=== PATIENT | male | born 1960 | race Caucasian/White ===

== ENCOUNTER 2020-02-25 03:37 | Emergency (ER) | payer BC ==
[~2020-02-25] VITALS: Ht 188 cm; Wt 113.4 kg
[2020-02-25] MEDS ORDERED: KETOROLAC TROMETHAMINE 30 MG/ML VIAL IV STA (03:55)
--- NOTE | 2020-02-25 03:55 | Emergency Department Note ---
History of Present Illnes History of Present Illness Chief Complaint: COVID PUI History of Present Illness This is a 59 year old male with increasing dyspnea and cough for past several days. Patient with recent (+) COVID-19 test . Historian: Patient Arrival Mode: Car Onset (how long ago): week(s) (1) Severity: moderate Duration (how long): day(s) Timing of current episode: constant Progression: worsening Chronicity: new Context: Reports recent illness Relieving factors: none Exacerbating factors: none Associated symptoms: Reports fever/chills, Reports malaise Past Medical/Family History Physician Review I have reviewed the patient's past medical and family history. Any updates have been documented here. Past Medical History Recent Fever: Yes Clinical Suspicion of Infectio: Yes New/Unexplained Change in Ment: No Other Medical History: DVT Past Surgical History: None Social History Smoking Cessation: Never Smoker Alcohol Use: None Any Illegal Drug Use: No Review of Systems Review of Systems Constitutional: Reports fever EENTM: Reports no symptoms Cardiovascular: Reports no symptoms Respiratory: Reports dyspnea Gastrointestinal: Reports no symptoms Genitourinary: Reports no symptoms Musculoskeletal: Reports no symptoms Integumentary: Reports no symptoms Neurological: Reports no symptoms Psychological: Reports no symptoms Endocrine: Reports no symptoms Hematological/Lymphatic: Reports no symptoms Physical Exam Related Data Allergies: Coded Allergies: No Known Allergies (Unverified , 02/25/20) Triage Vital Signs Vital Signs Date Time Temp Pulse Resp B/P (MAP) Pulse Ox O2 Delivery O2 Flow Rate FiO2 02/25/20 03:51 101.3 78 22 119/80 93 Room Air Vital signs reviewed: Yes Physical Exam CONSTITUTIONAL Constitutional: Present well-developed, Present well-nourished HENT HENT: Present normocephalic, Present atraumatic, Present oropharynx cl ear/moist, Present nose normal HENT L/R: Present left ext ear normal, Present right ext ear normal EYES Eyes: Reports PERRL, Reports conjunctivae normal NECK Neck: Present ROM normal PULMONARY Pulmonary: Present effort normal, Present breath sounds normal CARDIOVASCULAR Cardiovascular: Present regular rhythm, Present heart sounds normal, Present capillary refill normal, Present normal rate GASTROINTESTINAL Abdominal: Present soft, Present nontender, Present bowel sounds normal GENITOURINARY Genitourinary: Present exam deferred SKIN Skin: Present warm, Present dry MUSCULOSKELETAL Musculoskeletal: Present ROM normal NEUROLOGICAL Neurological: Present alert, Present oriented x 3, Present no gross motor or sensory deficits PSYCHOLOGICAL Psychological: Present mood/affect normal, Present judgement normal Results Laboratory Lab results reviewed: Yes Laboratory comments Laboratory Tests Test 02/25/20 03:55 White Blood Count 6.35 x10e3/uL (4.8-10.8) Red Blood Count 5.02 x10e6/uL (4.3-5.7) Hemoglobin 14.5 g/dL (14.0-18.0) Hematocrit 44.6 % (38.2-49.6) Mean Corpuscular Volume 88.8 fL (81-99) Mean Corpuscular Hemoglobin 28.9 pg (28-32) Mean Corpuscular Hemoglobin Concent 32.5 g/dL (31-35) Red Cell Distribution Width 13.3 % (11.7-14.4) Platelet Count 145 x10e3/uL (140-360) Neutrophils (%) (Auto) 80.8 % (38.7-80.0) Lymphocytes (%) (Auto) 14.2 % (18.0-39.1) Monocytes (%) (Auto) 3.8 % (4.4-11.3) Eosinophils (%) (Auto) 0.6 % (0.0-6.0) Basophils (%) (Auto) 0.3 % (0.0-1.0) Neutrophils # (Auto) 5.1 (2.1-6.9) Lymphocytes # (Auto) 0.9 (1.0-3.2) Monocytes # (Auto) 0.2 (0.2-0.8) Eosinophils # (Auto) 0.0 (0.0-0.4) Basophils # (Auto) 0.0 (0.0-0.1) Absolute Immature Granulocyte (auto 0.02 x10e3/uL (0-0.1) Sodium Level 133 mmol/L (136-145) Potassium Level 4.2 mmol/L (3.5-5.1) Chloride Level 99 mmol/L (98-107) Carbon Dioxide Level 25 mmol/L (22-29) Anion Gap 13.2 mmol/L (8-16) Blood Urea Nitrogen 12 mg/dL (7-26) Creatinine 0.98 mg/dL (0.72-1.25) Estimat Glomerular Filtration Rate > 60 ML/MIN (60-) BUN/Creatinine Ratio 12 (6-25) Glucose Level 106 mg/dL (74-118) Calcium Level 8.8 mg/dL (8.4-10.2) Total Bilirubin 0.4 mg/dL (0.2-1.2) Aspartate Amino Transf (AST/SGOT) 43 IU/L (5-34) Alanine Aminotransferase (ALT/SGPT) 43 IU/L (0-55) Alkaline Phosphatase 57 IU/L (40-150) Total Protein 7.9 g/dL (6.5-8.1) Albumin 4.0 g/dL (3.5-5.0) Globulin 3.9 g/dL (2.3-3.5) Albumin/Globulin Ratio 1.0 (0.8-2.0) Imaging Imaging results reviewed: Yes Impressions [place] [id number] Patient Name: BIB REYES MR #: [id number] : 1960 Age/Sex: 59/M Req #: [id number] Adm Physician: Ordered by: JUSTIN FISHER DO Report #: [id number] Location: ER Room/Bed: Procedure: [id number] CT/CT CHEST W Exam Date: Exam Time: REPORT STATUS: Signed EXAM: CT Chest WITH contrast 02/25/2020 5:23 AM INDICATION: Shortness of breath COMPARISON: None TECHNIQUE: Chest was scanned utilizing a multidetector helical scanner from the lung apex through the level of the adrenal glands without administration of IV contrast. Coronal and sagittal reformations were obtained. Routine protocol was performed. IV CONTRAST: 100 mL of Omnipaque 300 COMPLICATIONS: None RADIATION DOSE: Total DLP: 541 mGy*cm Estimated effective dose: (DLP x 0.014 x size factor) mSv CTDIvol has been reviewed. It is below the limits set by the Radiation Protocol Committee (RPC). Dose modulation, iterative reconstruction, and/or weight based adjustment of the mA/kV was utilized to reduce the radiation dose to as low as reasonably achievable. FINDINGS: LINES/ TUBES: None. LUNGS AND AIRWAYS: Patchy groundglass airspace consolidations throughout both lungs. More solid consolidation of the left lower lobe. PLEURA: The pleural spaces are clear. HEART AND MEDIASTINUM: No pulmonary artery filling defect is identified to the level of the segmental pulmonary artery branches. Mildly prominent subcentimeter mediastinal and hilar lymph nodes, likely reactive. The heart is at the upper limit of normal in size. No pericardial effusion. UPPER ABDOMEN: Multiple benign hepatic cysts. BONES: The visualized bony thorax is within normal limits. SOFT TISSUES: Unremarkable. IMPRESSION: 1. No pulmonary embolus. 2. Multifocal pulmonary airspace disease consistent with provided history of viral pneumonia. Signed by: Marnie Mei MD on 02/25/2020 5:42 AM Dictated By: MARNIE MEI MD 1 Transcribed By: JB on 02/25/20 05 COPY TO: JUSTIN FISHER DO~ Assessment & Plan Medical Decision Making MDM 59 yom with fever and myalgias. (+) contact with family members with similiar symptoms. COVID-19 positive from outside facility. Diff Dx : PE, PTX, pneumonia, ARDS , COVID-19 infection Assessment & Plan Final Impression: (1) Upper respiratory tract infection due to COVID-19 virus (2) Hypoxia Depart Disposition: HOME, SELF-CARE JUSTIN FISHER DO Feb 25, 2020 03:55
[2020-02-25 04:04] LABS: BASOPHILS % 0.3 % (0.0-1.0); EOSINOPHILS % 0.6 % (0.0-6.0); HEMATOCRIT 44.6 % (38.2-49.6); HEMOGLOBIN 14.5 g/dL (14.0-18.0); LYMPHOCYTES # (AUTO) 0.9 (1.0-3.2); LYMPHOCYTES % 14.2 % (18.0-39.1); MEAN CORPUSCULAR HEMOGLOBIN 28.9 pg (28-32); MEAN CORPUSCULAR HGB CONC 32.5 g/dL (31-35); MEAN CORPUSCULAR VOLUME 88.8 fL (81-99); MONOCYTES # (AUTO) 0.2 (0.2-0.8); MONOCYTES % 3.8 % (4.4-11.3); NEUTROPHILS # (AUTO) 5.1 (2.1-6.9); NEUTROPHILS % 80.8 % (38.7-80.0); PLATELET COUNT 145 x10e3/uL (140-360); RED BLOOD COUNT 5.02 x10e6/uL (4.3-5.7); RED CELL DISTRIBUTION WIDTH 13.3 % (11.7-14.4)
[2020-02-25 04:28] LABS: ALANINE AMINOTRANSFERASE 43 IU/L (0-55); ALKALINE PHOSPHATASE 57 IU/L (40-150); ANION GAP 13.2 mmol/L (8-16); BLOOD UREA NITROGEN 12 mg/dL (7-26); BUN/CREATININE RATIO 12 (6-25); CALCIUM 8.8 mg/dL (8.4-10.2); CARBON DIOXIDE 25 mmol/L (22-29); CHLORIDE 99 mmol/L (98-107); CREATININE, SERUM 0.98 mg/dL (0.72-1.25); EST GLOMERULAR FILTRATION RATE > 60 ML/MIN (60-); GLUCOSE 106 mg/dL (74-118); POTASSIUM 4.2 mmol/L (3.5-5.1); SODIUM 133 mmol/L (136-145)
[2020-02-25] MEDS ORDERED: IOPAMIDOL 370 MG/ML 200 ML INFUS..BTL INJ ONE (05:11)
[2020-02-25] MEDS ORDERED: SODIUM CHLORIDE 0.9% 50ML 50 ML ONE (05:12)
--- NOTE | 2020-02-25 05:46 | Diagnostic Imaging Report ---
EXAM: CT Chest WITH contrast 02/25/2020 5:23 AM INDICATION: Shortness of breath COMPARISON: None TECHNIQUE: Chest was scanned utilizing a multidetector helical scanner from the lung apex through the level of the adrenal glands without administration of IV contrast. Coronal and sagittal reformations were obtained. Routine protocol was performed. IV CONTRAST: 100 mL of Omnipaque 300 COMPLICATIONS: None RADIATION DOSE: Total DLP: 541 mGy*cm Estimated effective dose: (DLP x 0.014 x size factor) mSv CTDIvol has been reviewed. It is below the limits set by the Radiation Protocol Committee (RPC). Dose modulation, iterative reconstruction, and/or weight based adjustment of the mA/kV was utilized to reduce the radiation dose to as low as reasonably achievable. FINDINGS: LINES/ TUBES: None. LUNGS AND AIRWAYS: Patchy groundglass airspace consolidations throughout both lungs. More solid consolidation of the left lower lobe. PLEURA: The pleural spaces are clear. HEART AND MEDIASTINUM: No pulmonary artery filling defect is identified to the level of the segmental pulmonary artery branches. Mildly prominent subcentimeter mediastinal and hilar lymph nodes, likely reactive. The heart is at the upper limit of normal in size. No pericardial effusion. UPPER ABDOMEN: Multiple benign hepatic cysts. BONES: The visualized bony thorax is within normal limits. SOFT TISSUES: Unremarkable. IMPRESSION: 1. No pulmonary embolus. 2. Multifocal pulmonary airspace disease consistent with provided history of viral pneumonia. Signed by: Michael Crandall MD on 02/25/2020 5:42 AM
[2020-02-25 06:18] VITALS: BP 111/64
== END 2020-02-25 06:27 | disposition home or self-care (01) ==
LOC: ER 03:57
DX: U07.1 COVID-19 (principal); J06.9 Acute upper respiratory infection, unspecified; R09.02 Hypoxemia; Z86.718 Personal history of other venous thrombosis and embolism
CPT/HCPCS: 36415; 71260; 80053; 85025; 93005; 99284; J1885; Q9967

== ENCOUNTER 2020-02-29 19:18 | Inpatient (IN) | payer BC ==
[~2020-02-29] VITALS: Ht 188 cm; Wt 115.7 kg
[2020-02-29] MEDS ORDERED: ACETAMINOPHEN 325 MG TAB ONE (20:09)
--- NOTE | 2020-02-29 20:31 | Emergency Department Note ---
History of Present Illnes History of Present Illness Chief Complaint: COVID PUI History of Present Illness This is a 59 year old male REPORTS SOB, COUGH, CONGESTION, FEVER X11 DAYS; PT DC'D FROM THIS FACILITY 4 DAYS AGO, HAS POSITIVE COVID TEST FROM [facility]; ORAL TEMP AT THIS TIME 101.7 F . Historian: Patient Arrival Mode: Car Onset (how long ago): day(s) (11) Location: CHEST Quality: FEVER, COUGH, Radiation: Reports non-radiation Severity: moderate Onset quality: gradual Duration (how long): day(s) (11) Progression: worsening Chronicity: new Context: Reports recent illness (POSITIVE COVID 19 TEST) Relieving factors: none Exacerbating factors: none Associated symptoms: Reports denies other symptoms Treatments prior to arrival: none Past Medical/Family History Physician Review I have reviewed the patient's past medical and family history. Any updates have been documented here. Past Medical History Recent Fever: Yes Clinical Suspicion of Infectio: Yes New/Unexplained Change in Ment: No Other Medical History: blood clots high cholesterol Past Surgical History: None Social History Smoking Cessation: Never Smoker Counseling Performed: No Alcohol Use: Occasional Any Illegal Drug Use: No Other Any Pre-Existing Lines (PICC,: No Review of Systems Review of Systems Constitutional: Reports as per HPI EENTM: Reports no symptoms Cardiovascular: Reports no symptoms Respiratory: Reports as per HPI Gastrointestinal: Reports no symptoms Genitourinary: Reports no symptoms Musculoskeletal: Reports no symptoms Integumentary: Reports no symptoms Neurological: Reports no symptoms Psychological: Reports no symptoms Endocrine: Reports no symptoms Hematological/Lymphatic: Reports no symptoms Physical Exam Related Data Allergies: Coded Allergies: No Known Allergies (Unverified , 02/25/20) Triage Vital Signs Vital Signs Date Time Temp Pulse Resp B/P (MAP) Pulse Ox O2 Delivery O2 Flow Rate FiO2 02/29/20 20:03 101.7 86 19 127/77 93 Room Air Vital signs reviewed: Yes Physical Exam CONSTITUTIONAL Constitutional: Present well-developed, Present well-nourished HENT HENT: Present normocephalic, Present atraumatic, Present oropharynx clear/moist, Present nose normal HENT L/R: Present left ext ear normal, Present right ext ear normal EYES Eyes: Reports PERRL, Reports conjunctivae normal NECK Neck: Present ROM normal PULMONARY Pulmonary: Present effort normal, Present rhonchi (MILD AT BASES BILATERAL) CARDIOVASCULAR Cardiovascular: Present regular rhythm, Present heart sounds normal, Present capillary refill normal, Present normal rate GASTROINTESTINAL Abdominal: Present soft, Present nontender, Present bowel sounds normal GENITOURINARY Genitourinary: Present exam deferred SKIN Skin: Present warm, Present dry MUSCULOSKELETAL Musculoskeletal: Present ROM normal NEUROLOGICAL Neurological: Present alert, Present oriented x 3, Present no gross motor or sensory deficits PSYCHOLOGICAL Psychological: Present mood/affect normal, Present judgement normal Procedures 12 Lead ECG Interpretation ECG Interpretation : ECG: ECG 1 Director Phone: Interpreted by ED physician Date: Feb 29, 2020 Time: 20:05 Rhythm: sinus rhythm Rate: normal BPM: 76 QRS axis: normal ST segments normal: Yes T waves normal: Yes Other findings: LVH Clinical Impression: non-specific ECG Pulse Oximetry Pulse ox probe location: digit - finger Initial readin Readin (on 4 l oxygen via nc) Actions taking: other (placed on 4l oxygen via nc oxygen sat increased to 97%) Assessment & Plan Medical Decision Making MDM PT WITH KNOWN POSITIVE COVID 19 TEST PRESENTS WITH C/O GETTING WORSE, PT STATES STILL RUNNING FEVER, HAS COUGH AND SOB CBC, CMP, EKG, CARDIAC ENZYMES, CXR, ORDERED TO EVAL FOR MYOCARDIAL INFARCTION, ELECTROLYTE ABNORMALITY, PNEUMONIA TYLENOL 975 MG PO ORDERED I SPOKE WITH DR RIVERA , DR BENJAMIN, AND DR OLIVEIRA, ADMIT TO INPATIENT Reassessment Reassessment time: 22:28 Reassessment Date Time Temp Pulse Resp B/P (MAP) Pulse Ox O2 Delivery O2 Flow Rate FiO2 02/29/20 22:24 101.1 79 24 140/74 88 02/29/20 20:03 Room Air Assessment & Plan Final Impression: (1) COVID-19 (2) Viral pneumonia (3) Hypoxia Depart Disposition: ADMITTED Last Vital Signs Date Time Temp Pulse Resp B/P (MAP) Pulse Ox O2 Delivery O2 Flow Rate FiO2 02/29/20 20:03 101.7 86 19 127/77 93 Room Air Medications in the ED Acetaminophen 975 mg STK-MED ONCE .ROUTE ; Start 02/29/20 at 20:09; Stop 02/29/20 at 20:04; Status DC LAURA KELLY MD Feb 29, 2020 20:31
[2020-02-29 21:03] LABS: BASOPHILS % 0.1 % (0.0-1.0); EOSINOPHILS % 0.1 % (0.0-6.0); HEMATOCRIT 41.4 % (38.2-49.6); HEMOGLOBIN 13.3 g/dL (14.0-18.0); LYMPHOCYTES # (AUTO) 0.8 (1.0-3.2); LYMPHOCYTES % 8.4 % (18.0-39.1); MEAN CORPUSCULAR HEMOGLOBIN 28.9 pg (28-32); MEAN CORPUSCULAR HGB CONC 32.1 g/dL (31-35); MONOCYTES # (AUTO) 0.1 (0.2-0.8); MONOCYTES % 1.4 % (4.4-11.3); NEUTROPHILS # (AUTO) 8.9 (2.1-6.9); NEUTROPHILS % 89.1 % (38.7-80.0); PLATELET COUNT 263 x10e3/uL (140-360); RED CELL DISTRIBUTION WIDTH 13.6 % (11.7-14.4)
[2020-02-29 21:22] LABS: ALANINE AMINOTRANSFERASE 82 IU/L (0-55); ALBUMIN 3.2 g/dL (3.5-5.0); ALBUMIN/GLOBULIN RATIO 0.8 (0.8-2.0); ALKALINE PHOSPHATASE 47 IU/L (40-150); ANION GAP 15.5 mmol/L (8-16); BLOOD UREA NITROGEN 11 mg/dL (7-26); BUN/CREATININE RATIO 13 (6-25); CALCIUM 8.6 mg/dL (8.4-10.2); CARBON DIOXIDE 29 mmol/L (22-29); CHLORIDE 102 mmol/L (98-107); CREATINE KINASE 312 IU/L (30-200); CREATININE, SERUM 0.88 mg/dL (0.72-1.25); EST GLOMERULAR FILTRATION RATE > 60 ML/MIN (60-); GLUCOSE 95 mg/dL (74-118); POTASSIUM 3.5 mmol/L (3.5-5.1); SODIUM 143 mmol/L (136-145)
--- NOTE | 2020-02-29 21:31 | Diagnostic Imaging Report ---
EXAMINATION: CHEST SINGLE (PORTABLE) INDICATION: Short of breath, fever, positive: COMPARISON: Chest CT 02/25/2020 FINDINGS: TUBES and LINES: None. LUNGS: Normal lung volumes. Scattered patchy airspace opacities. No consolidations. PLEURA: No pleural effusion or pneumothorax. HEART AND MEDIASTINUM: Cardiac size is mildly enlarged. BONES AND SOFT TISSUES: No acute osseous lesion. Soft tissues are unremarkable. UPPER ABDOMEN: No free air under the diaphragm. IMPRESSION: Multifocal pneumonia, compatible with viral pneumonia. Mild cardiomegaly. Signed by: Ryland Mccarthy DO on 02/29/2020 9:27 PM
[2020-02-29] MEDS ORDERED: CEFTRIAXONE SOD 1 GM/NS 50 ML 50 ML IV ONE (22:30)
[2020-02-29] MEDS ORDERED: AZITHROMYCIN 500MG/NS 250 ML 250 ML IV ONE (22:30)
--- NOTE | 2020-02-29 22:38 | NUR ---
received patient in room
--- NOTE | 2020-02-29 22:43 | NUR ---
patient placed on 4l n/c, respiratory effort is improving.
[2020-02-29] MEDS ORDERED: ACETAMINOPHEN 325 MG TAB PO ONE (22:45)
[2020-03-01] VITALS (10 sets, daily range): BP systolic 116–136; BP diastolic 60–79
[2020-03-01] MEDS ORDERED: IBUPROFEN 600 MG TAB PO STA (00:15)
--- NOTE | 2020-03-01 00:20 | NUR ---
ACETAMINOPHEN INTERVENTION NOT EFFECTIVE IN REDUCING TEMPERATURE, MOTRIN ORDERS GIVEN.
[2020-03-01] MEDS ORDERED: ONDANSETRON HCL INJ 2MG/ML 2ML 2 MG/ML VIAL IV PRN (00:30)
[2020-03-01] MEDS ORDERED: SODIUM CHLORIDE 0.9% 1000ML 1,000 ML IV ONE (01:30)
--- NOTE | 2020-03-01 02:00 | NUR ---
PATIENT ARRIVED TO FLOOR VIA GURNEY, PLACED ON TELEMETRY BOX #26 CONT PULSE OX 97% 4 LITERS, HR 76, PLACED ON DROPLET PRECAUTION, NEG PRESSURE ROOM, PATIENT AOX4, AMBULATORY GAIT STEADY, FEBRILE, NS@100CC/HR INFUSING VIA RAC, RAC AND LAC IV PATENT DRSG C/D/I, PATIENT ORIENTED TO STAFF AND ROOM, COMFORT LEVEL INCREASED
--- NOTE | 2020-03-01 02:44 | NUR ---
ASSESSMENT COMPLETED, ADMISSION HX COMPLETED, EMERGENCY CONTACT BARI VICTORIA [phone]
[2020-03-01] MEDS ORDERED: XARELTO10 MG PO (02:51)
--- NOTE | 2020-03-01 02:51 | NUR ---
PATIENT REPORTS HOME MED XARELTO 1MG PO DAILY IS BEING HELD BY HIMSELF R/T HEMATURIA NOTED YESTERDAY, REPORTS URINE IS NOW YELLOW AND CLEAR NO SIGNS OF BLOOD
--- NOTE | 2020-03-01 02:59 | NUR ---
CYNTHIA NIELSON CALLED INFORMED THAT PATIENT C/O CHEST PAIN R/T COUGH 04/03, ORDERED ROBITUSSIN 10CC(200MG) Q6H PRN FOR COUGH, ORDER RB AND VERIFIED, ORDER CARRIED OUT
[2020-03-01] MEDS ORDERED: GUAIFENESIN 200 MG/10 ML UDC PO PRN (03:00)
[2020-03-01] MEDS: ACETAMINOPHEN 325 MG TAB PO PRN ×3 (03:14→23:42)
[2020-03-01] MEDS: DEXAMETHASONE SOD PHOS 10 MG/1 ML VIAL IV SCH (03:14)
[2020-03-01 04:55] LABS: CREATINE KINASE MB 1.1 ng/mL (0-5.0)
--- NOTE | 2020-03-01 07:00 | NUR ---
received change of shift report from PM nurse. pt awake, alert, in stable condition.
[2020-03-01] MEDS ORDERED: ENOXAPARIN INJ 80 MG/0.8 ML SYR SC SCH (09:00)
--- NOTE | 2020-03-01 10:03 | NUR ---
SPOKE WITH CYTNHIA DIAZ REGARDING ORDER FOR LOVENOX BID. PT STATES HE WAS HAVING HEMATURIA, WHICH HAS RESOLVED NOW; NOTED PT HAS HX OF DVT/PE. HOWEVER, PT HAD BEEN HOLDING HIS XARELTO AT HOME. EMILY STATES HE WILL DISCUSS WITH DR. RIVERA, BUT MAY DISCONTINUE TO LOVENOX AND RESTART XARELTO. AWAITING CALLBACK FOR CONFIRMATION OF NEW ORDERS.
[2020-03-01] MEDS: ZINC SULFATE 220 MG CAP PO SCH ×2 (10:08→17:32)
[2020-03-01] MEDS: ASCORBIC ACID 500 MG TAB PO SCH ×2 (10:08→17:32)
[2020-03-01] MEDS: AZITHROMYCIN 500MG/NS 250 ML 250 ML IV SCH (10:08)
--- NOTE | 2020-03-01 11:22 | NUR ---
rounded on patient; pt's oxygen placed at 3L. pt's oxygen saturation remained at 96% on NC at 3L. pt awake, alert, oriented x3, no signs of distress. will continue to monitor.
[2020-03-01] MEDS ORDERED: RIVAROXABAN 10 MG TABLET PO PRN (12:30)
[2020-03-01] MEDS ORDERED: RIVAROXABAN 10 MG TABLET PO SCH (12:45)
[2020-03-01 13:00] LABS: CREATINE KINASE 253 IU/L (30-200)
[2020-03-01] MEDS: CEFTRIAXONE SOD 1 GM/NS 50 ML 50 ML IV SCH (13:11)
[2020-03-01] MEDS ORDERED: RIVAROXABAN 15 MG TABLET PO SCH (14:00)
--- NOTE | 2020-03-01 14:46 | Consultation ---
DATE OF CONSULTATION: Pulmonary Critical Care Consultation CHIEF COMPLAINT: Dyspnea, fevers and cough. HISTORY OF PRESENT ILLNESS: The patient is a 59-year-old man. He has a history of fevers and cough for almost two weeks. He also notes some dyspnea. He says that his symptoms wax and wane and have been worse over the past several days. PAST MEDICAL HISTORY: 1. History of a deep vein thrombosis four years ago. The patient has been on low-dose Xarelto since then. 2. No prior history of asthma or respiratory problems. 3. No prior history of diabetes. 4. No prior history of cardiac disease. PAST SURGICAL HISTORY: Noncontributory. ALLERGIES: NO KNOWN DRUG ALLERGIES. SOCIAL HISTORY: The patient quit smoking about five years ago. He is not an active drinker. REVIEW OF SYSTEMS: The patient had some fevers at home. He has no headache. He has no neck pain. He has no chest pain. He is not having any abdominal pain. There is no nausea or vomiting. He does note cough and dyspnea. He has no leg edema. PHYSICAL EXAMINATION: VITAL SIGNS: The patient is afebrile. Blood pressure is 121/66, saturation is 96% on 4 L. HEENT: Shows no facial swelling or erythema. CARDIAC: Reveals regular rate and rhythm with normal S1 and S2. LUNGS: Auscultation of lungs reveals clear breath sounds bilaterally. There is no wheezing. ABDOMEN: Soft and nontender. There is no rebound or guarding. EXTREMITIES: Shows no leg edema or calf tenderness. There is no cyanosis or clubbing. SKIN: Shows no rashes. NEUROLOGICAL: Shows no focal abnormalities. IMPRESSION: 1. Viral pneumonia and COVID-19 infection. 2. Remote history of deep vein thrombosis. PLAN: 1. Continue oxygen. 2. Antibiotics for possible superimposed bacterial infection. 3. Continue Xarelto for DVT prophylaxis. 4. Decadron. 5. Out of bed as tolerated. Lawrence Cuello MD [facility]/MODL /[id number]
--- NOTE | 2020-03-01 19:18 | NUR ---
Received change of shift report from am nurse. Walking rounds completed.
--- NOTE | 2020-03-01 19:21 | NUR ---
Received change of shift report from jericho quiros Walking rounds completed. Addendum: 03/01/20 at 1922 by Maribel Diaz RN duplicate
--- NOTE | 2020-03-01 20:08 | Consultation ---
DATE OF CONSULTATION: REASON FOR CONSULTATION: COVID-19 pneumonia. HISTORY OF PRESENT ILLNESS: This is a 59-year-old white male, who has been sick for more than 2 weeks with history of DVT, history of osteoarthritis. The patient has been sick for more than 2 weeks with fever, chills, getting progressively worse, now getting shortness of breath, came to the emergency room. He is feeling better today, but he said he is extremely dizzy if he stands up. PAST MEDICAL HISTORY: DVT. PAST SURGICAL HISTORY: Denies. ALLERGIES: NKA. SOCIAL HISTORY: There is no smoking, drug abuse, or alcohol abuse. FAMILY HISTORY: Noncontributory. REVIEW OF SYSTEMS: HEENT: Negative. PULMONARY: Shortness of breath. CARDIAC: Negative. Fever, fatigue, and some chest discomfort, substernal, otherwise unremarkable. LABORATORY DATA: White count 9.93. His COVID-19 was positive. Sodium 143, potassium 3.5. Liver enzymes slightly elevated. IMPRESSION: Coronavirus disease 2019 for more than 2 weeks, concerned about superimposed bacterial pneumonia, concerned about deep venous thrombosis. Rocephin 1 g daily for 5 days, azithromycin 500 mg daily for 3 days, Lovenox 0.5 mg/kg. The patient is currently on Xarelto, so dexamethasone for 10 days. Continue as above. We will observe in the next couple days. If he starts to improve, may consider discharge home with oxygen and Xarelto. MD ELIZABETH Minor/SANDI /[id number]
[2020-03-01] MEDS ORDERED: ZOLPIDEM TARTRATE 5 MG TAB PO PRN (21:00)
[2020-03-01] MEDS ORDERED: HYDRALAZINE HCL 20 MG/ML VIAL IV PRN (21:45)
--- NOTE | 2020-03-01 22:52 | NUR ---
KARLA Zhou on the floor to see patients. Orders received.
[2020-03-02] VITALS (8 sets, daily range): BP systolic 105–144; BP diastolic 67–79
[2020-03-02] MEDS: DEXAMETHASONE SOD PHOS 10 MG/1 ML VIAL IV SCH
--- NOTE | 2020-03-02 04:22 | NUR ---
Patient resting quitly at this time with no c/o. Continue monitor for changes in condition.
[2020-03-02 06:19] LABS: BASOPHILS % 0.1 % (0.0-1.0); HEMATOCRIT 40.7 % (38.2-49.6); HEMOGLOBIN 13.1 g/dL (14.0-18.0); LYMPHOCYTES # (AUTO) 0.6 (1.0-3.2); MEAN CORPUSCULAR HEMOGLOBIN 29.4 pg (28-32); MEAN CORPUSCULAR HGB CONC 32.2 g/dL (31-35); MEAN CORPUSCULAR VOLUME 91.3 fL (81-99); MONOCYTES # (AUTO) 0.3 (0.2-0.8); MONOCYTES % 2.3 % (4.4-11.3); NEUTROPHILS # (AUTO) 11.1 (2.1-6.9); NEUTROPHILS % 91.7 % (38.7-80.0); PLATELET COUNT 307 x10e3/uL (140-360); RED BLOOD COUNT 4.46 x10e6/uL (4.3-5.7); RED CELL DISTRIBUTION WIDTH 13.6 % (11.7-14.4)
[2020-03-02 07:00] LABS: ALANINE AMINOTRANSFERASE 64 IU/L (0-55); ALBUMIN 2.8 g/dL (3.5-5.0); ALBUMIN/GLOBULIN RATIO 0.7 (0.8-2.0); ALKALINE PHOSPHATASE 51 IU/L (40-150); ANION GAP 12.4 mmol/L (8-16); BLOOD UREA NITROGEN 11 mg/dL (7-26); BUN/CREATININE RATIO 15 (6-25); CALCIUM 8.7 mg/dL (8.4-10.2); CARBON DIOXIDE 28 mmol/L (22-29); CHLORIDE 102 mmol/L (98-107); CREATININE, SERUM 0.73 mg/dL (0.72-1.25); EST GLOMERULAR FILTRATION RATE > 60 ML/MIN (60-); GLUCOSE 145 mg/dL (74-118); POTASSIUM 4.4 mmol/L (3.5-5.1); SODIUM 138 mmol/L (136-145)
[2020-03-02 07:16] LABS: PHOSPHORUS 3.6 MG/DL (2.3-4.7)
[2020-03-02 07:23] LABS: CREATINE KINASE 173 IU/L (30-200)
[2020-03-02 07:38] LABS: THYROID STIMULATING HORMONE 0.244 uIU/mL (0.350-4.940)
[2020-03-02] MEDS: PANTOPRAZOLE SOD 40 MG TABEC PO SCH (07:46)
[2020-03-02] MEDS: CEFTRIAXONE SOD 1 GM/NS 50 ML 50 ML IV SCH (07:46)
[2020-03-02] MEDS: ASCORBIC ACID 500 MG TAB PO SCH ×2 (07:46→17:14)
[2020-03-02] MEDS: ZINC SULFATE 220 MG CAP PO SCH ×2 (07:46→17:14)
[2020-03-02] MEDS ORDERED: ENOXAPARIN SOD INJ 40 MG/0.4 ML SYR SC SCH (09:00)
[2020-03-02] MEDS: AZITHROMYCIN 500MG/NS 250 ML 250 ML IV SCH (09:39)
--- NOTE | 2020-03-02 09:40 | NUR ---
PT IN BED RESTING ,NO S/S DISCOMFORT.O2 3L NC IN PLACE.DENIES PAIN
[2020-03-02 10:22] LABS: BAND NEUTROPHILS % (MANUAL) 4 %; EOSINOPHILS % (MANUAL) 2 % (0-7); MONOCYTES % (MANUAL) 11 % (3.4-9.0); NEUTROPHILS % (MANUAL) 83 % (40-74)
--- NOTE | 2020-03-02 12:00 | NUR ---
PT UP IN BED LUIS PAIN,NO DISTRESS NTOED..DOPPLER IN PROCESS
--- NOTE | 2020-03-02 13:41 | NUR ---
PT screen completed . Patient is Mod I in functional mobility at this time. Skilled physical therapy services not indicated at this point. Thank you. Addendum: 03/02/20 at 1342 by Zaheer epps PT Amended: Links added.
--- NOTE | 2020-03-02 15:30 | NUR ---
PT O2 SATS ON RA 86%,APLIED 2 L NC
[2020-03-02] MEDS: ENOXAPARIN SODIUM INJ 100 MG/ML SYR SC SCH (17:14)
[2020-03-02] MEDS: CHOLECALCIFEROL 400 UNIT TAB PO SCH (17:16)
--- NOTE | 2020-03-02 17:22 | NUR ---
PT IN BED RESTING NO DISTRESS NOTED,O2 2L NC IN PLACE.DENIES PAIN.
[2020-03-02] MEDS ORDERED: HYDROCODONE/APAP 7.5MG-325MG 1 EA TAB PO PRN (19:15)
--- NOTE | 2020-03-02 19:20 | NUR ---
Received change of shift report from AM nurse. Walking rounds completed.
[2020-03-02] MEDS ORDERED: KETOROLAC TROMETHAMINE 30 MG/ML VIAL IM SCH (19:30)
--- NOTE | 2020-03-02 20:27 | Progress Note ---
DATE: SUBJECTIVE: The patient is down to 2 L. He still has some pain with inspiration. He has some cough. Saturations have been in the low 90s. He is on 2 L. PHYSICAL EXAMINATION: VITAL SIGNS: The patient is afebrile. The blood pressure is 123/70 and the pulse is 63. HEENT: Shows no facial swelling or erythema. CARDIAC: Reveals a regular rate and rhythm with normal S1 and S2. LUNGS: Auscultation of lungs reveals rhonchorous breath sounds bilaterally. There is no wheezing. ABDOMEN: Soft and nontender. There is no rebound or guarding. EXTREMITIES: Shows no leg edema or calf tenderness. There is no cyanosis or clubbing. LABORATORY DATA: White blood cell count is 12.1, hemoglobin is 13.1. Platelet count is 307. BUN to creatinine ratio is normal. Other electrolytes are within normal limits. IMPRESSION: 1. COVID-19 and viral pneumonia. 2. Remote history of deep vein thrombosis. PLAN: 1. Toradol x1 for pain. The patient will also have Marston p.r.n. 2. Continue anticoagulants for DVT prophylaxis. 3. Continue current antibiotics. 4. Decadron. 5. Wean oxygen. Lawrence Cuello MD [facility]/SANDI /[id number]
[2020-03-03] VITALS: BP 138/82
[2020-03-03] MEDS: DEXAMETHASONE SOD PHOS 10 MG/1 ML VIAL IV SCH (00:30)
[2020-03-03 01:14] VITALS: BP 131/72
--- NOTE | 2020-03-03 01:18 | Progress Note ---
DATE: 03/02/2020 SUBJECTIVE: The patient is lying supine in bed. States, he still feels weak with painful cough, lung pain, dizziness with standing or any activity, dyspnea with any exertion. OBJECTIVE: VITAL SIGNS: Temperature 98.3, heart rate 56, blood pressure 116/67, respirations 16, and oxygen saturation 94%. GENERAL: Supine. LUNGS: Clear to auscultation. He is on oxygen at 3 L via nasal cannula. HEENT: EOMI. NECK: Supple. CARDIOVASCULAR: Regular rate and rhythm. No murmur. ABDOMEN: Bowel sounds positive. Soft and nontender. No guarding. EXTREMITIES: No clubbing, cyanosis, or edema. No signs or symptoms of DVT. NEUROLOGICAL: GCS 15. Nonfocal. LABORATORY DATA: WBC 12.11, hemoglobin 13.1, hematocrit 40.7, platelets 307. Sodium 138, potassium 4.4, chloride 102, CO2 of 28, anion gap 12.4, BUN 11 and creatinine 0.73, estimated GFR greater than 60, glucose 145. Hemoglobin A1c 5.7%. Calcium 8.7, phosphorus 3.6, magnesium 2.0, total bilirubin 0.4, AST 38, ALT 64, alkaline phosphatase 51. Creatine kinase 173, CK-MB 0.9, troponin I less than 0.001. Total protein 6.9, albumin 2.8. TSH 0.244. ASSESSMENT AND PLAN: 1. Multifocal viral community-acquired pneumonia, POA, due to COVID-19. Continue dexamethasone anticoagulation with Lovenox, which will increase to 1 mg/kg q.12 hours, is therapeutic, as the patient was taking Xarelto already for history of deep vein thrombosis in 2016. Thus, Lovenox dose will be 100 mg q.12 hours. Continue Rocephin/azithromycin, vitamin C, and zinc sulfate. 2. Mild acute hypokalemia, improved. Potassium level 4.4. 3. Osteoarthritis. PT eval and treat. 4. History of deep vein thrombosis in 2016. Bilateral lower extremity venous Doppler ultrasound negative for DVT. 5. Prophylaxis. Lovenox, Protonix. 6. Time spent 35 minutes. Billing code [id number]. Dictated by Abelardo López, FAGOTER Juan Galvin MD [facility]/SANDI Fonseca: 03/03/2020 00:47:23 /[id number]
[2020-03-03 04:00] VITALS: BP 129/73
--- NOTE | 2020-03-03 04:25 | NUR ---
Patient resting quitly at this time. Continue monitor. for changes in condition.
[2020-03-03] MEDS: ENOXAPARIN SODIUM INJ 100 MG/ML SYR SC SCH (04:42)
--- NOTE | 2020-03-03 07:00 | NUR ---
CHANGE OF SHIFT REPORT RECEIVED FROM PM NURSE. PT IN STABLE CONDITION. WILL CONTINUE TO MONITOR.
[2020-03-03 07:47] VITALS: BP 129/73
[2020-03-03 08:00] VITALS: BP 120/84
[2020-03-03] MEDS: ASCORBIC ACID 500 MG TAB PO SCH (08:12)
[2020-03-03] MEDS: PANTOPRAZOLE SOD 40 MG TABEC PO SCH (08:12)
[2020-03-03] MEDS: CEFTRIAXONE SOD 1 GM/NS 50 ML 50 ML IV SCH (08:12)
[2020-03-03] MEDS: CHOLECALCIFEROL 400 UNIT TAB PO SCH (08:12)
[2020-03-03] MEDS: ZINC SULFATE 220 MG CAP PO SCH (08:12)
[2020-03-03 08:49] LABS: BASOPHILS % 0.1 % (0.0-1.0); HEMATOCRIT 44.7 % (38.2-49.6); HEMOGLOBIN 14.4 g/dL (14.0-18.0); LYMPHOCYTES # (AUTO) 0.6 (1.0-3.2); LYMPHOCYTES % 7.1 % (18.0-39.1); MEAN CORPUSCULAR HEMOGLOBIN 28.8 pg (28-32); MEAN CORPUSCULAR HGB CONC 32.2 g/dL (31-35); MEAN CORPUSCULAR VOLUME 89.4 fL (81-99); MONOCYTES # (AUTO) 0.2 (0.2-0.8); MONOCYTES % 2.2 % (4.4-11.3); NEUTROPHILS # (AUTO) 7.4 (2.1-6.9); NEUTROPHILS % 89.2 % (38.7-80.0); PLATELET COUNT 334 x10e3/uL (140-360); RED CELL DISTRIBUTION WIDTH 13.5 % (11.7-14.4)
[2020-03-03] MEDS ORDERED: GUAIFENESI100 MG/5 M PO (08:55)
[2020-03-03] MEDS ORDERED: ACETAMINOPHEN325 M1 PO (08:55)
[2020-03-03] MEDS ORDERED: ELIQUIS2.5 MG PO (08:55)
[2020-03-03] MEDS ORDERED: ZINC SULFATE220 M1 PO (08:55)
[2020-03-03] MEDS ORDERED: Cholecalciferol PO (08:55)
[2020-03-03] MEDS ORDERED: ASCORBIC ACID500 MG PO (08:55)
[2020-03-03] MEDS ORDERED: DEXAMETHASONE4 MG PO (08:59)
[2020-03-03] MEDS: AZITHROMYCIN 500MG/NS 250 ML 250 ML IV SCH (09:04)
[2020-03-03 09:08] LABS: ALANINE AMINOTRANSFERASE 94 IU/L (0-55); ALBUMIN/GLOBULIN RATIO 0.7 (0.8-2.0); ALKALINE PHOSPHATASE 53 IU/L (40-150); ANION GAP 13.6 mmol/L (8-16); BLOOD UREA NITROGEN 16 mg/dL (7-26); BUN/CREATININE RATIO 20 (6-25); CALCIUM 9.3 mg/dL (8.4-10.2); CARBON DIOXIDE 29 mmol/L (22-29); CHLORIDE 101 mmol/L (98-107); CREATININE, SERUM 0.82 mg/dL (0.72-1.25); EST GLOMERULAR FILTRATION RATE > 60 ML/MIN (60-); GLUCOSE 142 mg/dL (74-118); POTASSIUM 4.6 mmol/L (3.5-5.1); SODIUM 139 mmol/L (136-145)
--- NOTE | 2020-03-03 10:15 | Discharge Summary ---
PRIMARY CARE PHYSICIAN: Jeremy Stern. CONSULTING PHYSICIANS: 1. Lawrence Cuello MD, with Pulmonology. 2. Margarita Reid MD, with Infectious Disease. CHIEF COMPLAINT: Dyspnea. HISTORY OF PRESENT ILLNESS: The patient is a 59-year-old male, admitted with complaints of cough and fever with dyspnea for nearly 2 weeks. The symptoms wax and wane, and have gotten progressively worse over the past few days. The patient was tested for COVID and found to be positive. PAST MEDICAL HISTORY: DVT in 2016, osteoarthritis. PAST SURGICAL HISTORY: No past surgical history. FAMILY HISTORY: Father of CVA. He also had diabetes and heart disease. Mother had diabetes, heart disease and abdominal aortic aneurysm. SOCIAL HISTORY: The patient quit smoking about 5 years ago. He smoked one pack a day for 10-15 years. He drinks beer, 6 pack on the weekends. Denies any use of illicit drugs. ALLERGIES: NO KNOWN ALLERGIES. ADMITTING DIAGNOSES: 1. Multifocal viral community-acquired pneumonia, present on arrival, due to Coronavirus disease-2019. 2. Mild acute hypokalemia. 3. Osteoarthritis. 4. History of deep vein thrombosis in 2015. 5. Transaminitis. DISCHARGE DIAGNOSES: 1. Multifocal viral community-acquired pneumonia, present on arrival, due to Coronavirus disease-2018. 2. Mild acute hypokalemia. 3. Osteoarthritis. 4. History of deep vein thrombosis in 2015. 5. Transaminitis. On admission, potassium 3.5, bicarbonate 29, anion gap 15.5, BUN 11, creatinine 0.88, estimated GFR greater than 60. AST 57, ALT 82, alkaline phosphatase 47. Creatine kinase elevated at 312. Coronavirus PCR detected 02/28. Blood cultures x2 showed no growth after 48 hours, collected 02/28. Chest x-ray obtained on 02/28 showed multifocal pneumonia compatible with viral pneumonia. During his stay, the patient received dexamethasone. He had been on Xarelto at home for his history of DVT in 2016, but apparently was only taking it as needed instead of daily. He was switched from Xarelto to Lovenox 1 mg/kg q.12 hours. Thus, 100 mg q.12 hours due to his history of DVT in 2015. He was on Rocephin and azithromycin, vitamin C, and zinc sulfate as well as cholecalciferol. Potassium was repleted. Per physical therapy note dated 03/02, the patient currently moderately independent in bed mobility, transfers, and gait. He ambulated inside the room without assistive device and moderate independent, steady gait. No loss of balance noted. Bilateral upper extremity and lower extremity muscle strength WFL. On the day of discharge, temperature 98.2. He has remained afebrile past 48 hours. T-max for his hospitalization was 102.9 and was on 03/01. Heart rate 45, respirations 17, blood pressure 129/73, oxygen saturation 93% on 3 L of oxygen via nasal cannula. Yesterday morning, WBCs 12.11, hemoglobin 13.1, hematocrit 40.7, platelets 307. His leukocytosis is likely due to the steroid. CMP, CBC collected this morning. We will replete electrolyte imbalance if it exists prior to him leaving. Case Management currently working on setting up his home oxygen and he has a history of DVT safety. We got a bilateral lower extremity venous Doppler ultrasound, which was negative for DVT, both legs. The patient is to continue on cardiac diet. Activity level as tolerated, self quarantine for 2 weeks. Follow up with Dr. Reid in 2 weeks. Follow up with PCP, Dr. Stern in 2-3 weeks. Dictated by Abelardo López NP MD JONI SalasP/SKYL /[id number]
[2020-03-03] MEDS ORDERED: ONDANSETRON HCL 4 MG ORAL DISINTEGRATING TAB PO PRN (10:45)
[2020-03-04] MEDS ORDERED: AZITHROMYCIN 250 MG TAB PO SCH (09:00)
== END 2020-03-03 12:30 | disposition home or self-care (01) | DRG 177 ==
LOC: ER 20:10 → ERHOLD 03-01 00:24 → MED/SURG3 03-01 00:58
PROVIDERS: ADMIT Internal Medicine; ATTEND Internal Medicine
DX: U07.1 COVID-19 (principal); J12.89 Other viral pneumonia; M19.90 Unspecified osteoarthritis, unspecified site; R74.0 Nonspecific elevation of levels of transaminase and lactic acid dehydrogenase [LDH]; Z86.718 Personal history of other venous thrombosis and embolism; Z79.01 Long term (current) use of anticoagulants; E87.6 Hypokalemia; K21.9 Gastro-esophageal reflux disease without esophagitis; I10 Essential (primary) hypertension
CPT/HCPCS: 36415; 71045; 80053; 82550; 82553; 83036; 83735; 84100; 84443; 84484; 85025; 87040; 87635; 93005; 93970; 97139; 99284; J0456; J0696; J1100; J1650; J1885